=== PATIENT | female | born 1945 | race Two or more races ===

== ENCOUNTER 2024-12-16 15:11 | Emergency (ER) | payer OTHER ==
[~2024-12-16] VITALS: Ht 160 cm; Wt 70.3 kg
[2024-12-16] MEDS ORDERED: AMLODIPINE-OLM1 EAC2 PO (15:31)
[2024-12-16] MEDS ORDERED: LOSARTAN-HCTZ1 EAC2 PO (15:31)
[2024-12-16] MEDS ORDERED: ZETIA10 MG PO (15:31)
[2024-12-16] MEDS ORDERED: SIMVASTATIN10 MG PO (15:31)
[2024-12-16] MEDS ORDERED: ARICEPT5 MG PO (15:32)
[2024-12-16 17:16] LABS: BASO % 0.6 % (0.1-1.2); EOS # 0.02 (0.04-0.54); EOS % 0.4 % (0.7-7.0); LYMPH # 1.13 (1.18-3.74); LYMPH % 23.4 % (19.3-53.1); MEAN PLATELET VOLUME 10.70 fl (9.4-12.4); MONO # 0.36 (0.24-0.82); MONO % 7.5 % (4.7-12.5); NEUT # 3.27 (1.56-6.13); NEUT % 67.9 % (34.0-71.1); RED CELL DISTRIBUTION WIDTH 12.9 % (11.6-14.4)
[2024-12-16 17:35] LABS: INR 0.99
[2024-12-16 17:40] LABS: ALT/SGPT 21.0 U/L (12-78); AST/SGOT 19.0 U/L (15-37); BILIRUBIN TOTAL 0.32 mg/dL (0.3-1.2); BUN CREA RATIO 34.0 (7.0-25.0); CREATININE SERUM 1.0 mg/dL (0.55-1.02); GFR 53.35; GLOBULINA 4.7 G/DL (2.4-3.5); GLUCOSE FASTING 101.0 mg/dL (65-100); OSMOLALITY SERUM 295.0 MOSM/KG (275-295)
[2024-12-16 17:44] LABS: COVID-19 AG NEGATIVE (NEGATIVE)
[2024-12-16 18:42] LABS: URINE APPEARANCE Clear; URINE BILIRRUBIN Negative (NEGATIVE); URINE BLOOD Moderate; URINE COLOR Yellow; URINE KETONE Trace (NEGATIVE); URINE LEUKOCYTE Trace; URINE NITRATE Negative; URINE PROTEIN Trace (NEGATIVE); URINE UROBILINOGEN 1.0 E.U./dl
[2024-12-16 18:45] LABS: URINE BACTERIA 118.8 uL (0.0-1933); URINE EPITHELIAL CELLS 9.6 uL (0.0-38.8); URINE RBC 34.1 uL (0.0-20.8); URINE WBC 7.6 uL (0.0-23.2)
[2024-12-16 18:46] LABS: URINE CAST 0.43 uL (0.0-1.40); URINE GLUCOSE 100 MG/DL (NEGATIVE)
== END 2024-12-16 19:24 ==
LOC: ER 15:11
PROVIDERS: General Practice
DX: R42 Dizziness and giddiness (principal); R25.1 Tremor, unspecified; R53.81 Other malaise; Z88.8 Allergy status to other drugs, medicaments and biological substances; I10 Essential (primary) hypertension; Z95.0 Presence of cardiac pacemaker; E78.00 Pure hypercholesterolemia, unspecified; F03.90 Unspecified dementia, unspecified severity, without behavioral disturbance, psychotic disturbance, mood disturbance, and anxiety; Z20.822 Contact with and (suspected) exposure to COVID-19